=== PATIENT | female | born 1975 | race Two or more races ===

== ENCOUNTER 2024-03-28 05:45 | Day surgery (SDC) | payer BC, SELFPAY ==
--- NOTE | 2024-03-24 09:37 | ESHP_ITS ---
RE: JAS LANG : 1975 DATE OF ADMISSION: 03/28/2024 HISTORY OF PRESENT ILLNESS: This is a 48-year-old 0 with abnormal uterine bleeding who presents for hysteroscopy, fractional dilatation and curettage, and NovaSure endometrial ablation. MEDICATIONS: 1. Losartan 100 mg one p.o. daily. 2. Citalopram 10 mg one p.o. daily. ALLERGIES: LATEX, PENICILLIN. PAST MEDICAL HISTORY: Chronic hypertension, prediabetes, body mass index 67, Gerard's palsy, and depression. PAST SURGICAL HISTORY: Denies. SOCIAL HISTORY: She denies any alcohol, drug use, or smoking. FAMILY HISTORY: Breast cancer, colon cancer, diabetes, hypertension. REVIEW OF SYSTEMS: She denies any chest pain, palpitations, cough, fever, shortness of breath, or lower extremity pain. PHYSICAL EXAMINATION: VITAL SIGNS: Blood pressure 158/77, heart rate 105, respirations 18, temperature is 98.6, weight 387 pounds. HEENT: Oropharynx and sclerae are clear. LUNGS: Clear to auscultation bilaterally. HEART: Regular rate and rhythm. ABDOMEN: Nontender. EXTREMITIES: Nontender. SKIN: No gross rashes or lesions. 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 ASSESSMENT: Abnormal uterine bleeding. PLAN: Hysteroscopy, fractional dilatation and curettage, NovaSure endometrial ablation. Informed consent was obtained. The patient was made aware of the risks, complications, alternatives, and benefits of the proposed procedure and she agrees. She is aware of the risk of injury to bowel or bladder, adjacent organs, pulmonary embolism, deep vein thrombosis, pelvic infection, reoperation to repair injury to internal organs, anesthesia complications, the possibility that a laparotomy needs to be performed to repair organs or control bleeding and the possibility the procedure is not able to be completed due to severe adhesions or technical difficulties. She verbalized understanding and agrees to proceed with the procedure with an understanding of the risks and complications. DT: :16:23 TT: 09:35:00 Ref: [id number] - TID: [id number] MTDD
[2024-03-27 07:53] VITALS: BMI 66.2
--- NOTE | 2024-03-27 08:09 | EKG_ITS ---
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
[2024-03-27 08:34] LABS: Basophils # (Auto) 0.1 Thou/mm3 (0.0-0.2); Basophils % (Auto) 1 % (0-2.5); Eosinophils # (Auto) 0.3 Thou/mm3 (0.0-0.5); Eosinophils % (Auto) 3 % (0-10); Hematocrit 42.6 % (36.0-46.0); Hemoglobin 13.6 g/dL (12.0-16.0); Immature Granulocytes % (Auto) 0 % (0-0); Immature Granulocytes Auto 0.03 Thou/mm3 (0.00-0.00); Lymphocytes # (Auto) 2.1 Thou/mm3 (1.0-4.8); Lymphocytes % (Auto) 28 % (10-50); Mean Corpuscular HGB Conc 31.9 g/dl (31.0-37.0); Mean Corpuscular Hemoglobin 30.6 pg (25.0-35.0); Mean Corpuscular Volume 96 fL (80-100); Monocytes # (Auto) 0.6 Thou/mm3 (0.0-0.8); Monocytes % (Auto) 8 % (0-12); Neutrophils # (Auto) 4.5 Thou/mm3 (1.8-7.7); Neutrophils % (Auto) 60 % (37-80); Nucleated Red Blood Cell % 0 /100 WBC (0); Platelet Count 323 Thou/mm3 (140-440); RDW Standard Deviation 46.2 fL (36.4-46.3); Red Blood Count 4.44 Miln/mm3 (4.00-5.20); White Blood Count 7.6 Thou/mm3 (3.6-11.0)
[2024-03-27 08:49] LABS: Partial Thromboplastin Time 26.4 Seconds (22.0-36.0); Prothrombin Time 10.6 Seconds (9.0-12.2)
[2024-03-27 08:59] LABS: Alanine Aminotransferase 37 U/L (10-49); Albumin, Serum 4.7 gm/dL (3.5-5.0); Albumin/Globulin Ratio 1.5 (1.2-2.2); Alkaline Phosphatase 107 U/L (46-116); Anion Gap 8 (7-16); Aspartate Amino Transferase 30 U/L (0-34); BUN/Creatinine Ratio 24 Ratio (12-20); Beta HCG,Quantitative 1 mIU/mL (<5.0); Bilirubin,Total 0.3 mg/dL (0.3-1.2); Blood Urea Nitrogen 19 mg/dL (9-23); Calcium 10.1 mg/dL (8.3-10.6); Calcium (Corrected) 10.1 mg/dL (8.5-10.1); Carbon Dioxide 31.3 mMol/L (20.0-31.0); Chloride 99 mMol/L (98-107); Creatinine (Component) 0.8 mg/dL (0.6-1.3); Estimated Creatinine Clearance 139.7 mL/min (>60); Globulin 3.1 gm/dL (2.3-3.5); Glucose 108 mg/dL (74-106); Osmolality,Calculated 278 (275-295); Potassium 4.5 mMol/L (3.4-5.1); Sodium 138 mMol/L (136-145); Total Protein 7.8 gm/dL (5.7-8.2); eGFR > 60 See Note
[2024-03-28] VITALS (8 sets, daily range): BP systolic 115–142; BP diastolic 76–88; PULSE 72–96; RESP 16–161; TEMP 36.4–36.7; O2SAT 96–98; BMI 65.6
--- NOTE | 2024-03-28 08:56 | SUR.PHASEI ---
0836 Patient arrived to recovery resting comfortably in [facility], drowsy and talking with staff, on oxygen 8L via oxy mask, breathing unlabored, vital signs stable, denies pain, dressing intact to vaginal area; peripad, no bleeding noted, lung sounds clear upon auscultation, bilateral radial pulses present when palpated, report received from Asa GOMEZ and Dr. Cisse
--- NOTE | 2024-03-28 09:43 | ESOP_ITS ---
RE: JAS LANG : 1975 DATE OF OPERATION: 03/28/2024 PREOPERATIVE DIAGNOSIS: Abnormal uterine bleeding. POSTOPERATIVE DIAGNOSIS: Abnormal uterine bleeding. PROCEDURE PERFORMED: Hysteroscopy, fractional dilatation and curettage, and NovaSure endometrial ablation. SURGEON: Devante Holliday DO ART THERAPY SPECIALIST: None. ANESTHESIA: General. ANESTHESIOLOGIST: Dr. Cisse ESTIMATED BLOOD LOSS: 5 mL. COMPLICATIONS: None. COUNTS: Correct. PATHOLOGY: 1. Endometrial tissue. 2. Endocervical tissue. 3. Cervical Pap smear. FINDINGS: Uterine cavity sounds to 10.0 cm. Cervical length was 3.0 cm. Uterine cavity length was 6.5 cm. Uterine cavity width was 3.5 cm. Power setting was 125 philip. Duration of ablation was 50 seconds. Fluids absorbed hysteroscopically 245 mL of normal saline. Cervical stenosis and hypertrophic endometrial tissue. DESCRIPTION OF PROCEDURE: After appropriate informed consent was obtained, the patient was made aware of the risks, complications, alternatives, and benefits of the proposed procedure. She was taken to the operating room where she underwent induction of general anesthesia. She was placed in the dorsal lithotomy position. She was prepped and draped in the usual sterile fashion. A timeout was performed. The patient underwent exam under anesthesia. The speculum was placed in the vagina. Single-tooth tenaculum was used to grasp the anterior lip of the cervix. The cervix was dilated to accommodate the 3.0 mm Omni hysteroscope. The hysteroscope was then utilized to visualize the endocervix and uterine cavity. The cervix was then further dilated to accommodate the 5.5 mm Omni hysteroscope. The hysteroscope was then utilized to visualize the endocervix and uterine cavity. Using the MyoSure Reach device, endometrial tissue was sampled in all four quadrants of the uterine cavity. The endocervix was curetted with a Kevorkian curette and specimen sent to Pathology. The NovaSure catheter was plugged into the controller and went through its purge cycle 6.5 cm. It was entered on the catheter for cavity length. The array was deployed. The width meter was working correctly. The array was retracted into the sheath. The catheter was appropriately seated in the uterine cavity with the width meter reading 3.5 cm. The power setting was 125 philip. The carbon dioxide cavity integrity assessment test was performed. The cavity was intact. The ablation was performed for a total of 50 seconds before the controller shut off and the instrument was removed and redeployed and found to be complete and intact. There was no bleeding at the cervix at the end of the procedure. A Pap smear was performed at the end of the procedure. She was reversed from general anesthesia in the supine position and transferred to recovery room in stable condition. She tolerated the procedure well. All counts were correct. I discussed with the patient's family, the nature of her condition, intraoperative findings, and expectation for recovery. All questions answered. DT: 08:47:45 TT: 09:42:00 Ref: [id number] - TID: [id number]
--- NOTE | 2024-03-28 09:43 | SUR.PHASEII ---
0942 Patient meets discharge criteria from recovery, awake and alert, breathing unlabored, vital signs stable, denies pain, dressing intact; no bleeding noted, patient assisted with dressing into her clothing by her mother, patient ate two jello; tolerated well, denies nausea, discharge instructions given to patient and patients mother, mother signed discharge instructions. Patient given all her belongings prior to discharge, transported via wheelchair and left in a private vehicle.
== END 2024-03-28 09:42 | disposition home or self-care (01) ==
PROVIDERS: PCP Internal Medicine; Referring Provider Specialist; Visit Provider Specialist
PROC: 0U5B8ZZ Destruction of Endometrium, Via Natural or Artificial Opening Endoscopic (ICD-10-PCS; CPT 58563; principal; 2024-03-28 07:30)
DX: C54.1 Malignant neoplasm of endometrium (principal); I10 Essential (primary) hypertension; Z80.3 Family history of malignant neoplasm of breast; Z80.0 Family history of malignant neoplasm of digestive organs
CPT/HCPCS: 58563; 36415; 80053; 84702; 85025; 85610; 85730; 86850; 86900; 86901; 93005; A4217; A4649; J0131; J0330; J1100; J2371; J2704; J2765; J3010; J3490; A9270; J1805; J2598

== ENCOUNTER → 2024-05-26 | Outpatient (CLI) | payer BC, SELFPAY ==
[2024-05-26 08:41] LABS: Basophils # (Auto) 0.1 Thou/mm3 (0.0-0.2); Basophils % (Auto) 1 % (0-2.5); Eosinophils # (Auto) 0.3 Thou/mm3 (0.0-0.5); Eosinophils % (Auto) 4 % (0-10); Hematocrit 38.7 % (36.0-46.0); Hemoglobin 12.4 g/dL (12.0-16.0); Immature Granulocytes % (Auto) 1 % (0-0); Immature Granulocytes Auto 0.04 Thou/mm3 (0.00-0.00); Lymphocytes # (Auto) 1.6 Thou/mm3 (1.0-4.8); Lymphocytes % (Auto) 24 % (10-50); Mean Corpuscular Hemoglobin 30.2 pg (25.0-35.0); Mean Corpuscular Volume 94 fL (80-100); Monocytes # (Auto) 0.6 Thou/mm3 (0.0-0.8); Monocytes % (Auto) 10 % (0-12); Neutrophils # (Auto) 4.1 Thou/mm3 (1.8-7.7); Neutrophils % (Auto) 61 % (37-80); Nucleated Red Blood Cell % 0 /100 WBC (0); Platelet Count 323 Thou/mm3 (140-440); RDW Standard Deviation 45.5 fL (36.4-46.3); Red Blood Count 4.11 Miln/mm3 (4.00-5.20); White Blood Count 6.7 Thou/mm3 (3.6-11.0)
[2024-05-26 09:14] LABS: Alanine Aminotransferase 34 U/L (10-49); Alkaline Phosphatase 106 U/L (46-116); Anion Gap 8 (7-16); Aspartate Amino Transferase 28 U/L (0-34); BUN/Creatinine Ratio 16 Ratio (12-20); Bilirubin,Direct 0.2 mg/dL (0.0-0.3); Bilirubin,Total 0.5 mg/dL (0.3-1.2); Blood Urea Nitrogen 13 mg/dL (9-23); Calcium 9.4 mg/dL (8.3-10.6); Carbon Dioxide 30.8 mMol/L (20.0-31.0); Cardiac Risk Estimate 4.1 RATIO (3.7-5.6); Chloride 101 mMol/L (98-107); Cholesterol 143 mg/dL (132-200); Creatinine (Component) 0.8 mg/dL (0.6-1.3); Free T4 (Free Thyroxine) 1.11 ng/dL (0.89-1.76); Glucose 117 mg/dL (74-106); HDL Cholesterol 35 mg/dL (40-60); LDL Cholesterol,Calculated 83 mg/dL (0-130); Osmolality,Calculated 280 (275-295); Sodium 140 mMol/L (136-145); Thyroid Stimulating Hormone 1.19 uIU/mL (0.55-4.78); Total Protein 6.6 gm/dL (5.7-8.2); Triglycerides 125 mg/dL (30-150); eGFR > 60 See Note
== END | disposition home or self-care (01) ==
LOC: COPL 08:01
PROVIDERS: PCP Internal Medicine; Referring Provider Internal Medicine Cardiovascular Disease; Visit Provider Internal Medicine Cardiovascular Disease
DX: I10 Essential (primary) hypertension (principal); E78.5 Hyperlipidemia, unspecified
CPT/HCPCS: 36415; 80048; 80061; 80076; 84439; 84443; 85025

== ENCOUNTER → 2024-06-19 | Outpatient (CLI) | payer BC, SELFPAY | END | disposition home or self-care (01) | LOC: SLDO 11:32 | PROVIDERS: Referring Provider Nurse Practitioner Women's Health; Visit Provider Nurse Practitioner Women's Health | DX: R39.9 Unspecified symptoms and signs involving the genitourinary system (principal) | CPT/HCPCS: 81001 ==

== ENCOUNTER → 2024-06-20 | Outpatient (CLI) | payer BC, SELFPAY ==
[2024-06-20 11:26] LABS: Collection Type, Urine Clean Catch
[2024-06-20 12:41] LABS: Bacteria,Urine 1+; Bilirubin,Urine Negative (Negative); Blood,Urine 2+ (Negative); Color,Urine Yellow (Lt Yel-Yel); Glucose, Urine Negative (Negative); Ketones,Urine Negative (Negative); Leukocyte Esterase,Urine Positive (Negative); Nitrite,Urine Negative (Negative); Protein,Urine 1+ (Neg - Trace); RBC,Urine 13 /hpf (0-3); Specific Gravity,Urine 1.009 (1.001-1.035); Squamous Epithelial Cell,Urine 8 /hpf (0-5); Urobilinogen,Urine Negative mg/dL (0.0-1.0); WBC,Urine 895 /hpf (0-5)
[2024-06-20 12:46] LABS: Clarity,Urine Cloudy (Clear/Hazy)
== END | disposition home or self-care (01) ==
LOC: SLDO 11:00
PROVIDERS: Referring Provider Nurse Practitioner Women's Health; Visit Provider Nurse Practitioner Women's Health
DX: R39.9 Unspecified symptoms and signs involving the genitourinary system (principal)
CPT/HCPCS: 81001

== ENCOUNTER 2024-06-26 15:22 | Emergency (ER) | payer BC, SELFPAY ==
[2024-06-26 15:23] VITALS: BMI 66.9
--- NOTE | 2024-06-26 15:48 | PD.EDRME ---
Rapid Medical Screening Exam RME Arrival date/time: 06/26/24 15:22 49-year-old female presents to the emergency department today for complaints of vaginal bleeding patient reports having a hysterectomy 06/[address] Cueto in [place]. Chief Complaint: Vaginal Bleeding Time Seen by Provider: 06/26/24 15:32
--- NOTE | 2024-06-26 15:49 | XR_ITS ---
Examination: Pelvic ultrasound, transabdominal, complete Technique: Transabdominal ultrasound of the pelvis performed using grayscale imaging Date and time of exam: June 18, 2024 1556 hours INDICATIONS: Diagnosis endometrial cancer post hysterectomy pelvic pain today FINDINGS: Uterus ovaries not visualized No free fluid in the pelvis No pelvic mass IMPRESSION: No free fluid in the pelvis No pelvic mass
[2024-06-26 15:50] VITALS: BP 178/75; PULSE 117; RESP 18; TEMP 36.9; O2SAT 98
[2024-06-26 16:31] LABS: Basophils # (Auto) 0.1 Thou/mm3 (0.0-0.2); Basophils % (Auto) 1 % (0-2.5); Eosinophils # (Auto) 0.2 Thou/mm3 (0.0-0.5); Eosinophils % (Auto) 3 % (0-10); Hematocrit 38.3 % (36.0-46.0); Hemoglobin 12.3 g/dL (12.0-16.0); Immature Granulocytes % (Auto) 1 % (0-0); Immature Granulocytes Auto 0.04 Thou/mm3 (0.00-0.00); Lymphocytes # (Auto) 2.1 Thou/mm3 (1.0-4.8); Lymphocytes % (Auto) 28 % (10-50); Mean Corpuscular HGB Conc 32.1 g/dl (31.0-37.0); Mean Corpuscular Hemoglobin 30.8 pg (25.0-35.0); Mean Corpuscular Volume 96 fL (80-100); Monocytes # (Auto) 0.7 Thou/mm3 (0.0-0.8); Monocytes % (Auto) 9 % (0-12); Neutrophils # (Auto) 4.3 Thou/mm3 (1.8-7.7); Neutrophils % (Auto) 58 % (37-80); Nucleated Red Blood Cell % 0 /100 WBC (0); Platelet Count 349 Thou/mm3 (140-440); RDW Standard Deviation 45.4 fL (36.4-46.3); White Blood Count 7.4 Thou/mm3 (3.6-11.0)
[2024-06-26 16:41] LABS: Prothrombin Time 10.7 Seconds (9.0-12.2)
[2024-06-26 16:58] LABS: Alanine Aminotransferase 62 U/L (10-49); Albumin, Serum 4.3 gm/dL (3.5-5.0); Albumin/Globulin Ratio 1.4 (1.2-2.2); Alkaline Phosphatase 110 U/L (46-116); Anion Gap 10 (7-16); Aspartate Amino Transferase 54 U/L (0-34); BUN/Creatinine Ratio 23 Ratio (12-20); Bilirubin,Total 0.2 mg/dL (0.3-1.2); Blood Urea Nitrogen 18 mg/dL (9-23); Calcium 9.1 mg/dL (8.3-10.6); Calcium (Corrected) 9.1 mg/dL (8.5-10.1); Carbon Dioxide 30.2 mMol/L (20.0-31.0); Chloride 101 mMol/L (98-107); Creatinine (Component) 0.8 mg/dL (0.6-1.3); Estimated Creatinine Clearance 139.1 mL/min (>60); Globulin 3.1 gm/dL (2.3-3.5); Glucose 106 mg/dL (74-106); Osmolality,Calculated 283 (275-295); Potassium 3.7 mMol/L (3.4-5.1); Sodium 141 mMol/L (136-145); Total Protein 7.4 gm/dL (5.7-8.2); eGFR > 60 See Note
[2024-06-26 17:47] VITALS: BP 154/85; PULSE 104; RESP 16; TEMP 36.7; O2SAT 97
--- NOTE | 2024-06-26 18:02 | PC.NURSE ---
PT CAME TO THE ED WITH MOM FOR VAGINAL BLEEDING. PT STATES BLEEDING STARTED 06/26/2024 AROUND 1500. PT STATES BLEEDING WAS BRIGHT RED AND A MEDIUM AMOUNT. PT STATES SHE HAD A TOTAL HYSTERECTOMY IN MAY 2024 FOR ENDOMETRIAL CANCER
--- NOTE | 2024-06-26 18:33 | PD.EDADULT ---
ED General RME/HPI General Chief complaint: Vaginal Bleeding Stated complaint: VAG BLEED HYSTERECTOMY ON 06/09/24 Time Seen by Provider: 06/26/24 15:32 Arrival date/time: 06/26/24 15:22 CC: Vaginal bleeding HPI painless onset at 1500 this afternoon large amount and then has decreased in volume. Patient states she soaked 1 pad but nothing else. Patient denies lightheadedness dizziness shortness of breath difficulty breathing or fever. Patient is 3 days status post hysterectomy by Dr. Cueto at [facility]. RME / HPI RME / HPI narrative: 06/26/24 15:22 49-year-old female presents to the emergency department today for complaints of vaginal bleeding patient reports having a hysterectomy 06/[address] Cueto in [place]. Related Data Home Medications ?Medication ?Instructions ?Recorded ?Confirmed escitalopram oxalate 10 mg tablet 10 mg PO QDAY 03/27/24 03/28/24 losartan 100 1 tab PO QDAY 03/27/24 03/28/24 mg-hydrochlorothiazide 25 mg tablet Allergies Allergy/AdvReac Type Severity Reaction Status Date / Time latex Allergy Intermediate Rash Verified 06/26/24 15:23 Penicillins Allergy Intermediate Rash Verified 06/26/24 15:23 Review of Systems Review of Systems Narrative Review of Systems: GEN: No fever, no chills, no weight loss EYES: No discharge, no visual changes, no pain HEENT: No ear pain, no congestion, no sore throat PULM: No shortness of breath, no cough, no congestion CV: No chest pain, no dyspnea on exertion, no palpitations GI: No nausea, no vomiting, no diarrhea, no pain, no constipation : No frequency, no urgency, no dysuria MUSC/SKEL: No joint pain, no back pain SKIN: No rash PSYCH: No hallucinations, no depression HEME/LYMPH: No easy bleeding or bruising tendencies NEURO: No weakness, no headache Past Medical History Past Medical History NEUROLOGIC: Positive Neurological Disorders and Gerard's Palsy (Left); Negative Seizures CARDIAC: Positive Cardiac Disorders and Hypertension; Negative Congestive Heart Failure RESPIRATORY: Negative Chronic Obstructive Pulmonary Disease (COPD) GASTROINTESTINAL: Positive Gastrointestinal Disorders and Obesity; Negative Hepatitis GENITOURINARY: Negative Genitourinary Disorders or Renal Disease REPRODUCTIVE: Negative Previous Pregnancies MUSCULOSKELETAL: Positive Musculoskeletal Disorders ENDOCRINE: Negative Endocrine Disorders, Diabetes Mellitus Type 1 or Diabetes Mellitus Type 2 HEMATOLOGIC: Negative Blood Disorders PSYCHO/SOCIAL: Positive Anxiety OTHER HISTORY: Positive Chicken Pox; Negative Hospitalization, Autoimmune Disease, Shingles, Blood Transfusions, Blood Transfusion Reaction, Anesthesia Reactions or Cancer Family History FAMILY HISTORY: Positive Family Cardiac Disorders, Family Cancer and Family Surgery; Negative Family Psychiatric Problems, Family Respiratory Disorders, Family Gastrointestinal Problems or Family Anesthesia Reaction Surgical History SURGICAL: Positive Hysterectomy OTHER SURGICAL HX: DNC Social History SMOKING STATUS: Never smoker ED Exam Narrative Physical exam: [General: Morbidly obese not in any acute distress Head normocephalic HEENT: Within acceptable limits Neck is supple nontender Chest equal chest rise nontender to palpation Respiratory: Clear to auscultation no wheezes crackles or rubs CV: Rate rhythm is regular no murmurs rubs or clicks Abdomen is distended secondary to body habitus soft nontender no masses positive bowel sounds all 4 quadrants Back: No CVA tenderness no spinous process tenderness from cervical spine thoracic and lumbar spine Skin: Intact no petechiae rash induration ulceration or crepitus Extremities: Moving all extremity against resistance cap refill less than 2 seconds neurosensory intact Neuro: Awake alert oriented x3 Glascow coma 15 no focal deficits] Course Quality Measures none Orders Category Date Time Status US pelvic complete Stat Exams 06/26/24 15:49 Completed CBC Stat Lab 06/26/24 16:11 Completed Comprehensive Metabolic Panel Stat Lab 06/26/24 16:11 Completed Partial Thromboplastin Time Stat Lab 06/26/24 16:11 Completed Prothrombin Time with INR Stat Lab 06/26/24 16:11 Completed Vital Signs Vital signs: Vital Signs Temperature 98.5 F 06/26/24 15:50 Pulse Rate 117 H 06/26/24 15:50 Respiratory Rate 18 06/26/24 15:50 Blood Pressure 178/75 H 06/26/24 15:50 Pulse Oximetry (%) 98 06/26/24 15:50 Discharge Plan Plan Patient Disposition: HOME (Self Care) Patient condition on transfer: Stable Prescriptions/Referrals Prescriptions/Med Rec: No Action losartan-hydrochlorothiazide 100-25 mg Tablet 1 tab PO QDAY escitalopram oxalate 10 mg Tablet 10 mg PO QDAY Referrals: Walter Rea MD [Primary Care Provider] - In 1 week Problem List Clinical Impression: Abnormal uterine bleeding Patient/Caregiver Discharge Instructions Education Materials: Hysterectomy Vaginal Dc Print Language: Cuban Stand Alone Forms: [employer]., Patient Portal Info Letter MDM Patient Acuity High Acuity (complete MDM) Narrative: 3 days status post hysterectomy with Dr. Pollock [facility] morbid obesity Clinical Information Provided by: patient Medical Records reviewed [facility] Chronic Illness/Social Conditions Explain: Morbid obesity Labs Lab(s) Interpretation(s): CBC shows no acute leukocytosis anemia thrombocytopenia Coags within acceptable limits CMP shows no significant electrolyte imbalances renal impairment T. bili of 0.2 AST 54 ALT 62 alk phos at 110 Imaging Imaging Interpretation(s): Ultrasound of the pelvis shows no free fluid in the abdomen., No pelvic mass. Medication Administration(s) none Diagnosis Differential Diagnosis ED Complaint MDM: Lower abdominal internal hemorrhaging, anemia, sepsis
[2024-06-26 18:40] VITALS: BP 154/85; RESP 18
== END 2024-06-26 18:38 | disposition home or self-care (01) ==
PROVIDERS: Nurse Practitioner Primary Care; Emergency Provider Emergency Medicine; PCP Internal Medicine
DX: N93.9 Abnormal uterine and vaginal bleeding, unspecified (principal); R10.2 Pelvic and perineal pain
CPT/HCPCS: 36415; 76856; 80053; 85025; 85610; 85730; 99284

== ENCOUNTER → 2024-11-28 | Outpatient (CLI) | payer BC, SELFPAY ==
[2024-11-28 09:03] LABS: Basophils # (Auto) 0.0 Thou/mm3 (0.0-0.2); Basophils % (Auto) 1 % (0-2.5); Eosinophils # (Auto) 0.2 Thou/mm3 (0.0-0.5); Eosinophils % (Auto) 3 % (0-10); Hematocrit 41.3 % (36.0-46.0); Hemoglobin 12.9 g/dL (12.0-16.0); Immature Granulocytes Auto 0.02 Thou/mm3 (0.00-0.00); Lymphocytes # (Auto) 1.7 Thou/mm3 (1.0-4.8); Lymphocytes % (Auto) 27 % (10-50); Mean Corpuscular HGB Conc 31.2 g/dl (31.0-37.0); Mean Corpuscular Hemoglobin 30.9 pg (25.0-35.0); Mean Corpuscular Volume 99 fL (80-100); Monocytes # (Auto) 0.4 Thou/mm3 (0.0-0.8); Monocytes % (Auto) 6 % (0-12); Neutrophils # (Auto) 4.0 Thou/mm3 (1.8-7.7); Neutrophils % (Auto) 63 % (37-80); Nucleated Red Blood Cell # 0.00 Thou/mm3 (0.00-0.00); Nucleated Red Blood Cell % 0 /100 WBC (0); Platelet Count 348 Thou/mm3 (140-440); RDW Standard Deviation 50.3 fL (36.4-46.3); Red Blood Count 4.18 Miln/mm3 (4.00-5.20); White Blood Count 6.3 Thou/mm3 (3.6-11.0)
[2024-11-28 09:13] LABS: Glucose Estimated Average 123 mg/dL (80-131); Hemoglobin A1C 5.9 % Hgb (4.8-6.0)
[2024-11-28 09:18] LABS: Alanine Aminotransferase 47 U/L (10-49); Albumin, Serum 4.3 gm/dL (3.5-5.0); Albumin/Globulin Ratio 1.6 (1.2-2.2); Alkaline Phosphatase 102 U/L (46-116); Anion Gap 10 (7-16); Aspartate Amino Transferase 37 U/L (0-34); BUN/Creatinine Ratio 21 Ratio (12-20); Bilirubin,Total 0.3 mg/dL (0.3-1.2); Blood Urea Nitrogen 17 mg/dL (9-23); Calcium 9.7 mg/dL (8.3-10.6); Calcium (Corrected) 9.7 mg/dL (8.5-10.1); Carbon Dioxide 31.0 mMol/L (20.0-31.0); Cardiac Risk Estimate 3.8 RATIO (3.7-5.6); Chloride 102 mMol/L (98-107); Cholesterol 147 mg/dL (132-200); Creatinine (Component) 0.8 mg/dL (0.6-1.3); Globulin 2.7 gm/dL (2.3-3.5); Glucose 124 mg/dL (74-106); HDL Cholesterol 39 mg/dL (40-60); LDL Cholesterol,Calculated 76 mg/dL (0-130); Osmolality,Calculated 287 (275-295); Potassium 3.8 mMol/L (3.4-5.1); Sodium 143 mMol/L (136-145); Thyroid Stimulating Hormone 1.16 uIU/mL (0.55-4.78); Total Protein 7.0 gm/dL (5.7-8.2); Triglycerides 162 mg/dL (30-150); eGFR > 60 See Note
[2024-11-28 09:30] LABS: Follicle Stimulating Hormone 25.78 mIU/mL (See Note)
[2024-12-04 07:24] LABS: Estradiol, Ultrasensitive* 22 pg/mL; Luteinizing Hormone* 12.4 mIU/mL; Testosterone,Total* 17 ng/dL (2-45)
== END | disposition home or self-care (01) ==
LOC: COPL 07:09
PROVIDERS: PCP Internal Medicine; Referring Provider Internal Medicine; Visit Provider Internal Medicine
DX: N95.1 Menopausal and female climacteric states (principal); Z13.6 Encounter for screening for cardiovascular disorders; R73.03 Prediabetes; Z79.899 Other long term (current) drug therapy
CPT/HCPCS: 36415; 80053; 80061; 82670; 83001; 83002; 83036; 84403; 84443; 85025